=== PATIENT | female | born 1995 | race Hispanic/Latino ===

== ENCOUNTER 2017-11-21 00:30 | Emergency (ER) | payer BC ==
[2017-11-21] MEDS ORDERED: Lidocaine 1% Inj (20ml) ONE (01:06)
--- NOTE | 2017-11-21 01:33 | ED PDOC ---
Arrival/HPI - General Chief Complaint: Finger,Hand,&Wrist Time Seen by Provider: 11/21/17 00:57 Historian: Patient - History of Present Illness Narrative History of Present Illness (Text): 11/21/17 01:33 A 22 year old female presents to the emergency department for evaluation of cut to left index finger. Patient cut her left index finger tip with a knife prior to arrival. Patient denies any fever or any other complaints at this time. Symptom Onset: Sudden Symptom Course: Unchanged Activities at Onset: Light Context: Home Past Medical History - Provider Review Nursing Documentation Reviewed: Yes - Psychiatric Hx Substance Use: Yes (weed) Family/Social History - Physician Review Nursing Documentation Reviewed: Yes Family/Social History: No Known Family HX Smoking Status: Light Smoker < 10 Cigarettes Daily Hx Alcohol Use: Yes Hx Substance Use: Yes (weed) Allergies/Home Meds Allergies/Adverse Reactions: Allergies No Known Allergies Allergy (Verified 11/21/17 00:52) Home Medications: Home Meds Medication Instructions Recorded Confirmed No Known Home Med 11/21/17 11/21/17 Review of Systems - Physician Review All systems were reviewed & negative as marked: Yes - Review of Systems Constitutional: absent: Fevers Skin: Other (left index finger tip laceration) Physical Exam Vital Signs Reviewed: Yes Vital Signs Temp Pulse Resp BP Pulse Ox 11/21/17 00:52 98.1 F 102 H 18 120/81 99 Temperature: Afebrile Blood Pressure: Normal Pulse: Tachycardic Respiratory Rate: Normal Appearance: Positive for: Well-Appearing, Non-Toxic, Comfortable Pain Distress: None Mental Status: Positive for: Alert and Oriented X 3 - Systems Exam Head: Present: Atraumatic, Normocephalic Pupils: Present: PERRL Extroacular Muscles: Present: EOMI Conjunctiva: Present: Normal Mouth: Present: Moist Mucous Membranes Neck: Present: Normal Range of Motion Respiratory/Chest: Present: Clear to Auscultation, Good Air Exchange. No: Respiratory Distress, Accessory Muscle Use Cardiovascular: Present: Regular Rate and Rhythm, Normal S1, S2. No: Murmurs Abdomen: Present: Normal Bowel Sounds. No: Tenderness, Distention, Peritoneal Signs Back: Present: Normal Inspection Upper Extremity: Present: Other (0.5 cm flap over volar aspect of left index finger). No: Cyanosis, Edema Lower Extremity: Present: Normal Inspection. No: Edema Neurological: Present: GCS=15, CN II-XII Intact, Speech Normal Skin: Present: Warm, Dry, Normal Color. No: Rashes Psychiatric: Present: Alert, Oriented x 3, Normal Insight, Normal Concentration Medical Decision Making ED Course and Treatment: 11/21/17 01:31 Impression: A 22 year old female with cut to left index finger tip. Plan: -- Reassess and disposition Progress Notes: PROCEDURE: LACERATION REPAIR Performed by the emergency provider Location: volar aspect of left index finger Length: 0.5 cm Description: clean wound edges,no foreign bodies Distal CMS: Normal. No deficits. Neurovascularly intact. Anesthesia: Lidocaine 1% Preparation: The wound was cleaned with NS and Betadyne. The area was prepped and draped in the usual sterile fashion. Exploration: The wound was explored and no foreign bodies were found. Procedure: The wound was closed with 5-0 nylon. There was good / appropriate / adequate / loose approximation. In total, 6 sutures were used. Post-Procedure: Good closure and hemostasis. The patient tolerated the procedure well and there were no complications. CSM remains intact. Post procedure dressing applied. 11/21/17 02:00 On re-evaluation, patient feels better and is in no acute distress. I have discussed the results and plan with the patient, who expresses understanding. Patient in agreement with plan to be discharged home. Patient is stable for discharge. Patient was instructed to follow up with physician or return if symptoms worsen or new concerning symptoms arise. Procedure: Wound Repair - Time Out Time Out: Side verified - Consent Obtained Consent obtained: Verbal - Performed by Performed by: Attending Physician - Indications Indication(s):: Laceration - Location Finger:: Left, Index Shape:: Other (FLAP) Dimensions Length cm: 0.5 cm Depth:: Epidermis - Anesthetic Technique Anesthetic Technique: Local Local/Regional Anesthetic:: Lidocaine 1% - Debris Debris:: None - Irrigated Irrigated with ml of normal saline: 50 - Complexity Complexity:: Simple (one layer) - Wound repair method Sutures:: # (7), Size (5.0), Type (nylon) - Patient tolerated procedure Patient Tolerated Procedure:: Well - Scribe Statement The provider has reviewed the documentation as recorded by the Maribel Diehl Provider Scribe Attestation: All medical record entries made by the Scribe were at my direction and personally dictated by me. I have reviewed the chart and agree that the record accurately reflects my personal performance of the history, physical exam, medical decision making, and the department course for this patient. I have also personally directed, reviewed, and agree with the discharge instructions and disposition. Disposition/Present on Arrival - Present on Arrival Any Indicators Present on Arrival: No History of DVT/PE: No History of Uncontrolled Diabetes: No Urinary Catheter: No History of Decub. Ulcer: No History Surgical Site Infection Following: None - Disposition Have Diagnosis and Disposition been Completed?: Yes Diagnosis: Laceration of index finger of left hand without complication Disposition: HOME/ ROUTINE Disposition Time: 01:55 Condition: GOOD Discharge Instructions (ExitCare): Laceration Repair With Stitches (DC) Additional Instructions: suture removal in 7 days Referrals: PCP,NO [Primary Care Provider] - Follow up with primary Forms: [facility] (Serbian)
[2017-11-21 12:04] VITALS: BP 120/81; PULSE 102; RESP 18; TEMP 98.1; O2SAT 99
== END 2017-11-21 01:55 | disposition home or self-care (01) ==
LOC: ED 00:30
DX: S61.211A Laceration without foreign body of left index finger without damage to nail, initial encounter (principal); W26.0XXA Contact with knife, initial encounter; Y92.009 Unspecified place in unspecified non-institutional (private) residence as the place of occurrence of the external cause; F17.210 Nicotine dependence, cigarettes, uncomplicated

== ENCOUNTER 2017-11-27 15:13 | Emergency (ER) | payer BC ==
--- NOTE | 2017-11-27 16:23 | ED PDOC ---
Arrival/HPI - General Chief Complaint: Suture/Staple Removal Time Seen by Provider: 11/27/17 16:01 Historian: Patient - History of Present Illness Narrative History of Present Illness (Text): 11/27/17 16:20 22yo female who present to Emergency department for suture removal from her left 2nd index. Sutures was placed here a week ago. she denies fever, discharge from wound, redness, any other complaint. Past Medical History - Provider Review Nursing Documentation Reviewed: Yes - Infectious Disease Hx of Infectious Diseases: None - Psychiatric Hx Substance Use: Yes (weed) Family/Social History - Physician Review Nursing Documentation Reviewed: Yes Family/Social History: Unknown Family HX Smoking Status: Light Smoker < 10 Cigarettes Daily Hx Alcohol Use: Yes Hx Substance Use: Yes (weed) Allergies/Home Meds Allergies/Adverse Reactions: Allergies No Known Allergies Allergy (Verified 11/27/17 16:12) Home Medications: Home Meds Medication Instructions Recorded Confirmed No Known Home Med 11/21/17 11/27/17 Review of Systems - Physician Review All systems were reviewed & negative as marked: Yes - Review of Systems Constitutional: Normal Eyes: Normal ENT: Normal Respiratory: Normal Cardiovascular: Normal Gastrointestinal: Normal Genitourinary Female: Normal Musculoskeletal: Normal Skin: Other (suture removal) Neurological: Normal Endocrine: Normal Hemo/Lymphatic: Normal Psychiatric: Normal Physical Exam Vital Signs Reviewed: Yes Vital Signs Temp Pulse Resp BP Pulse Ox 11/27/17 16:10 98.4 F 87 16 116/75 98 Temperature: Afebrile Blood Pressure: Normal Pulse: Regular Respiratory Rate: Normal Appearance: Positive for: Well-Appearing, Non-Toxic, Comfortable Pain Distress: None Mental Status: Positive for: Alert and Oriented X 3 - Systems Exam Head: Present: Atraumatic, Normocephalic Pupils: Present: PERRL Extroacular Muscles: Present: EOMI Conjunctiva: Present: Normal Mouth: Present: Moist Mucous Membranes Neck: Present: Normal Range of Motion Respiratory/Chest: Present: Clear to Auscultation, Good Air Exchange. No: Respiratory Distress, Accessory Muscle Use Cardiovascular: Present: Regular Rate and Rhythm, Normal S1, S2. No: Murmurs Abdomen: No: Tenderness, Distention, Peritoneal Signs Back: Present: Normal Inspection Upper Extremity: Present: Normal Inspection. No: Cyanosis, Edema Lower Extremity: Present: Normal Inspection. No: Edema Neurological: Present: GCS=15, CN II-XII Intact, Speech Normal Skin: Present: Warm, Dry, Normal Color, Other (6sutures noted on left distal 2nd finger/tip. No erythema. No discharge. No sign of infection). No: Rashes Psychiatric: Present: Alert, Oriented x 3, Normal Insight, Normal Concentration Medical Decision Making ED Course and Treatment: 11/27/17 16:21 wound cleaned with betadine. 6 sutures removed. Edges appear well approximated. Bacitracine applied and dressed. Disposition/Present on Arrival - Present on Arrival Any Indicators Present on Arrival: No History of DVT/PE: No History of Uncontrolled Diabetes: No Urinary Catheter: No History of Decub. Ulcer: No History Surgical Site Infection Following: None - Disposition Have Diagnosis and Disposition been Completed?: Yes Diagnosis: Encounter for removal of sutures Disposition: HOME/ ROUTINE Disposition Time: 16:25 Patient Plan: Discharge Condition: STABLE Discharge Instructions (ExitCare): Stitches Removal Additional Instructions: Keep wound clean and dry follow up with your Doctor Return to Emergency department for any new or worsening symptoms Referrals: [facility] – [place] [Outside] - Follow up with primary
[2017-11-27 16:35] VITALS: BP 116/75; PULSE 87; RESP 16; TEMP 98.4; O2SAT 98
== END 2017-11-27 16:34 | disposition home or self-care (01) ==
LOC: ED 15:13
DX: Z48.02 Encounter for removal of sutures (principal); F17.210 Nicotine dependence, cigarettes, uncomplicated

== ENCOUNTER 2017-12-11 12:36 | Emergency (ER) | payer BC ==
[2017-12-11 12:53] VITALS: TEMP 98.2
--- NOTE | 2017-12-11 13:04 | ED PDOC ---
Arrival/HPI - General Chief Complaint: Lower Extremity Problem/Injury Time Seen by Provider: 12/11/17 12:57 Historian: Patient - History of Present Illness Narrative History of Present Illness (Text): 12/11/17 13:04 A 22 year old female presents to the emergency department complaining of cellulitis to right leg for 2 weeks. Time/Duration: Other (2 weeks) Past Medical History - Provider Review Nursing Documentation Reviewed: Yes - Infectious Disease Hx of Infectious Diseases: None - Reproductive Menopause: No - Psychiatric Hx Substance Use: Yes (weed) - Anesthesia Hx Anesthesia Reactions: No Family/Social History - Physician Review Nursing Documentation Reviewed: Yes Family/Social History: No Known Family HX Smoking Status: Light Smoker < 10 Cigarettes Daily Hx Alcohol Use: Yes Hx Substance Use: Yes (weed) Allergies/Home Meds Allergies/Adverse Reactions: Allergies No Known Allergies Allergy (Verified 11/27/17 16:12) Home Medications: Home Meds Medication Instructions Recorded Confirmed No Known Home Med 11/21/17 12/11/17 Review of Systems - Physician Review All systems were reviewed & negative as marked: Yes - Review of Systems Skin: Cellulitis (to right leg) Physical Exam Vital Signs Reviewed: Yes Vital Signs Temp Pulse Resp BP Pulse Ox 12/11/17 15:00 82 18 112/83 100 12/11/17 12:49 98.2 F 98 H 16 110/72 99 Temperature: Afebrile Blood Pressure: Normal Pulse: Tachycardic Respiratory Rate: Normal Appearance: Positive for: Well-Appearing, Non-Toxic, Comfortable Pain Distress: None Mental Status: Positive for: Alert and Oriented X 3 Medical Decision Making ED Course and Treatment: 12/11/17 13:04 Impression: A 22 year old female with cellulitis to right lower extremity Plan: -- Incision and drainage procedure -- Clindamycin -- Reassess and disposition Progress Notes: Procedure: Incision & Drainage Performed by the emergency provider and medical student Indication: Abscess Location: Right lower extremity Preparation: The area was prepped and draped in the usual sterile fashion and was cleansed. Local infiltration of 5 cc Lidocaine 1% was used for anesthesia. Procedure: The most fluctuant portion of the abscess was incised with a #11 scalpel to make a stab wound. Pus expressed. Area was dressed with antibiotic ointment and wrapped. Post-Procedure: On exam the abscess is notably less fluctuant. The patient tolerated the procedure well, and there were no complications. Cultured: Yes - Lab Interpretations Microbiology Results: Microbiology Results 12/11/17 13:27 Abscess - Leg Gram Stain - Final 12/11/17 13:27 Abscess - Leg Wound Culture - Final Coagulase Neg Staphylococcus - Medication Orders Current Medication Orders: Discontinued Medications Clindamycin Phosphate 900 mg/ (Sodium Chloride) 106 mls @ 106 mls/hr IVPB STAT STA PRN Reason: Protocol Stop: 12/11/17 14:06 Last Admin: 12/11/17 14:28 Dose: 106 mls/hr eMAR Start Stop Document 12/11/17 14:28 HI (Rec: 12/11/17 14:28 HI [id number]) Intravenous Solution Start Date 12/11/17 Start Time 14:28 Lidocaine HCl (Lidocaine 1% (20ml)) 10 ml SC STAT STA Stop: 12/11/17 13:12 - Scribe Statement The provider has reviewed the documentation as recorded by the Libertyibawais Medina Provider Scribe Attestation: All medical record entries made by the Scribe were at my direction and personally dictated by me. I have reviewed the chart and agree that the record accurately reflects my personal performance of the history, physical exam, medical decision making, and the department course for this patient. I have also personally directed, reviewed, and agree with the discharge instructions and disposition. Disposition/Present on Arrival - Present on Arrival Any Indicators Present on Arrival: No History of DVT/PE: No History of Uncontrolled Diabetes: No Urinary Catheter: No History of Decub. Ulcer: No History Surgical Site Infection Following: None - Disposition Have Diagnosis and Disposition been Completed?: Yes Diagnosis: MRSA cellulitis of right foot, Encounter for incision and drainage procedure Disposition: HOME/ ROUTINE Disposition Time: 13:38 Patient Plan: Discharge Condition: GOOD Discharge Instructions (ExitCare): Wound Incision and Drainage (DC), MRSA ( Methicillin Resistant Staphylococcus Aureus) (ED) Additional Instructions: [place] this happened to you. It should heal in about a week. If it is more red , more sore, more tender, or there is more pus, come back and let us take another look. Finish the Bactrim. Motrin should be good for pain or soreness. Ice pack will help too. Mundo, Dr. Shawn Mg Referrals: [facility], [Non-Staff] - Follow up with primary Forms: [email or web address] (Belarusian), SCHOOL NOTE, WORK NOTE
[2017-12-11] MEDS ORDERED: Lidocaine 1% Inj (20ml) SC STA (13:11)
[2017-12-11 16:42] VITALS: BP 112/83; PULSE 82; RESP 18; O2SAT 100
== END 2017-12-11 15:33 | disposition home or self-care (01) ==
LOC: ED 12:36
DX: L03.115 Cellulitis of right lower limb (principal); B95.62 Methicillin resistant Staphylococcus aureus infection as the cause of diseases classified elsewhere; F17.210 Nicotine dependence, cigarettes, uncomplicated